=== PATIENT | female | born 1995 | race Caucasian/White ===

== ENCOUNTER 2017-06-15 23:24 | Emergency (ER) | payer OTHER ==
[~2017-06-15] VITALS: Ht 152.4 cm; Wt 57.9 kg
[2017-06-16 00:12] VITALS: BP 127/71; PULSE 125; RESP 18; O2SAT 100
--- NOTE | 2017-06-16 00:30 | ED.REPORT ---
HPI-General Illness Date of Service Jun 16, 2017 ED Provider: Jose Rafael Dickerson MD Pt is a 21 year old female with a hx of heroin abuse presenting to the ED for care. Associated symptoms include a fever. She is but she is not sure how far along, and she has not had any care or an ultrasound yet. She states that she last smoked heroin a day and a half ago. Pt reports that she cannot go into drug detox without having care. She has been once before but didn't find out until she was 7 months along. Denies any chills, SOB, wheezing, nausea, vomiting or diarrhea. Nursing Notes Stated Complaint: CARE Chief Complaint: Substance Abuse Nursing Notes Reviewed: Yes Allergies: Coded Allergies: acetaminophen (Verified Allergy, Unknown, 09/25/15) Scheduled Buprenorphine SL (Buprenorphine SL) 8 Mg Tab.subl 8 MG SL DAILY General Time Seen by MD: 00:27 Chief Complaint Other () Hx Obtained From: Patient Arrived By: Walk-in Sudden in Onset?: No Onset Occurred: Onset unknown Symptom Duration: Since onset Recent Healthcare: No recent doctor visit, No recent hospitalization Similar Sx Previous: No Past Medical History Past Medical History Seasonal allergies Corneal abrasion Past Surgical History I&D of abscess on buttock Reports: Tonsillectomy Family History Reviewed, not relevant Reports: Diabetes mellitus Reports: Cancer Smoking History Current Every Day Smoker Social History Pt lives with friends. Denies IV drug use, smokes heroin. Alcohol Use: "Social" Drug Use: THC, Other (Heroin) Occupation unemployed and not in school Ambulatory Status Independent Review of Systems Full Review of Systems Constitutional: Reports: Fever, Denies: Chills Respiratory: Denies: Shortness of breath, Wheezing GI: Denies: Diarrhea, Nausea, Vomiting Female: Reports: Complete sys rev & neg: except as marked. Physical Exam Vital Signs Vital Signs Date Time Temp Pulse Resp B/P Pulse Ox O2 Delivery O2 Flow Rate FiO2 06/16/17 03:57 37.0 122 19 93/78 98 Room Air 06/16/17 02:38 128 21 112/5 100 Room Air 06/16/17 00:12 36.8 125 18 127/71 100 Initial VS: Reviewed, Vital signs abnormal General/Constitutional: Well-developed, Well-nourished Head / Eyes: Atraumatic, Normocephalic, PERRL ENT: Mucous membranes moist, Conjunctiva normal, No scleral icterus Neck: Supple, Non-tender, Full range of motion Respiratory: Breath sounds normal, Clear to auscultation, No respiratory distress Extremities: Vascular intact, Neuro intact, No swelling, No tenderness Neurologic: Alert, Oriented, Nonfocal Psychiatric: Mood/affect normal, Behavior normal, Normal thought content Cardiovascular: Regular rhythm, Heart sounds NL Heart Rate / Rhythm: Positive: Tachycardia Abdomen: Atraumatic, Soft, Non-tender Uterus palpable 2-3 cm above umbilicus. movement is palpated. Skin: Warm Diaphoresis Interpretation & Diagnostics US : CONCLUSION: Single live intrauterine at approximately 27 weeks and 4 days. No specific abnormality. This report was transmitted to the emergency room at 06/16/2017 - 3:05:39 AM PDT. Lab Results Interpretation Result Diagram: 06/16/17 0126 06/16/17 0126 Test 06/16/17 01:26 06/16/17 01:30 White Blood Count 12.2th/mm3 (3.8-10.1) Red Blood Count 3.84mil/mm3 (3.90-5.20) Hemoglobin 10.3g/dL (12.0-15.6) Hematocrit 30.7% (35.0-46.0) Mean Corpuscular Volume 79.9fL (81-100) Mean Corpuscular Hemoglobin 26.8pg (27.0-35.0) Mean Corpuscular Hemoglobin Concent 33.6% (32.0-37.0) Red Cell Distribution Width 12.8% (12.3-15.4) Platelet Count 307bil/L (150-400) Neutrophils (%) (Auto) 82.3% (40-74) Lymphocytes (%) (Auto) 12.6% (14-46) Monocytes (%) (Auto) 4.2% (4-12) Eosinophils (%) (Auto) 0.2% (0-5) Basophils (%) (Auto) 0.2% (0-3) Erythrocyte Sedimentation Rate 34mm/hr (0-32) Sodium Level 137mEq/L (134-144) Potassium Level 3.7mEq/L (3.5-5.2) Chloride Level 103mEq/L (97-108) Carbon Dioxide Level 21mmol/L (18-29) Blood Urea Nitrogen 6mg/dL (6-20) Creatinine 0.32mg/dL (0.57-1.00) Estimat Glomerular Filtration Rate 373mL/min (>59) Glucose Level 105mg/dL (60-99) Lactic Acid Level 0.8mmol/L (0.4-2.0) Calcium Level 8.9mg/dL (8.5-10.1) Magnesium Level 1.8mg/dL (1.6-2.6) Total Bilirubin 0.2mg/dL (0.0-1.2) Aspartate Amino Transf (AST/SGOT) 19U/L (0-50) Alanine Aminotransferase (ALT/SGPT) 13U/L (0-32) Alkaline Phosphatase 84U/L (25-150) Total Protein 6.6g/dL (6.4-8.4) Albumin 3.4g/dL (3.4-5.0) Urine Color Straw (YELLOW) Urine Appearance Cloudy (CLEAR,HAZY) Urine pH 7.5 (5.0-8.0) Urine Specific [place] 1.010 (1.003-1.035) Urine Protein Negativemg/dL (NEG,TRACE) Urine Glucose (UA) Negativemg/dL (NEGATIVE) Urine Ketones Negativemg/dL (NEGATIVE) Urine Occult Blood Negative (NEGATIVE) Urine Nitrite Positive (NEGATIVE) Urine Bilirubin Negative (NEGATIVE) Urine Urobilinogen Normalmg/dL (NORMAL) Urine Leukocyte Esterase Moderate (NEGATIVE) Urine RBC 0-2/hpf (0-2) Urine WBC 6-10/hpf (0-5) Urine Epithelial Cells Many/hpf (NONE-MOD) Urine Crystals None seen (NONE SEEN) Urine Bacteria Many/hpf (NONE-FEW) Urine Hyaline Casts None/lpf (NONE) Urine Granular Casts None seen (NONE SEEN) Urine Waxy Casts None seen (NONE SEEN) Urine Red Blood Cell Casts None seen (NONE SEEN) Urine White Blood Cell Casts None seen (NONE SEEN) Urine Mucus None seen (None Seen) Urine Trichomonas None seen (NONE SEEN) Urine Yeast None (NONE SEEN) Urinalysis Comment None Urine Culture Reflexed Indicated Lab Results Interpretation: Elevated white blood count, normal lactic acid. Blood cultures pending. Re-Eval/Medical Decision Med Decision/Clinical Course 21-year-old female in advanced was received no care presents in full opiate withdrawal. She had been using smoked heroin but stopped cold turkey about 30 hours ago. She is very concerned about whether she will be arrested or not. She was give Subutex 4 mg with improvement followed by an additional 4 mg with complete resolution of her withdrawal symptoms. She was hydrated. Ultrasound was performed which showed 27.4 week with appropriate size. The baby was not tachycardic and showed no hyperactivity. She was given a prescription for Subutex and instructed on how to make an appointment at [facility]. She was referred to the Center for further monitoring and OB follow-up. Time of Eval: 00:39 Patient Status: Condition improved Re-Evaluation/Progress Note: Family in the room. Time of Eval: 01:13 Patient Status: Condition improved Re-Evaluation/Progress Note: Pt now complains of a headache. Time of Eval: 02:33 Patient Status: Condition improved Re-Evaluation/Progress Note: Discussed ultrasound results. Time of Eval: 03:37 Patient Status: Condition improved Re-Evaluation/Progress Note: Pt feels back to normal and is talking to a friend on the phone. Heart rate is down to 120. Risk, benefits and alternatives of suboxone during were discussed. Counseled Regarding: Diagnosis, Lab results, Need for follow-up, When/why to return to ED Discharge & Departure Primary Impression: Opioid dependence with withdrawal Additional Impressions: Heroin abuse complicating Trimester: second trimester Qualified Code: O99.322 - Drug use complicating , second trimester Weeks of gestation: 27 weeks Qualified Code: Z3A.27 - 27 weeks gestation of Disposition: Home Discharge Condition All VS Reviewed: Yes Condition: Improved Patient Instructions: Buprenorphine (Into the mouth) Additional Instructions: Your baby boy is about 27-1/2 weeks along!! Do not use any more heroin. Subutex (buprenorphine) 8 mg dissolved under the tongue daily, #6 prescription written. Contact [facility] priority access line at [phone] to schedule the next available appointment for outpatient Subutex management. You and the baby are far safer on Subutex during the . Call me on my personal cell phone at [phone] if you have any problems accessing care. Referrals: Vitor Curtis MD (PCP) Scribe Attestation Portions of this note were transcribed by Ivana Jimenez. I, Dr. Dickerson personally performed the history, physical exam and medical decision-making; I reviewed and confirmed the accuracy of the information in the transcribed note. Signed by: Ronda Wade, 06/16/2017. copies to: Vitor Curtis MD, Jose Rafael Hines MD Jun 16, 2017 00:30 IVANA JIMENEZ Jun 16, 2017 00:37
[2017-06-16] MEDS ORDERED: Buprenorphine 2 mg SL Tablet SL ONE ×2 (00:35→02:40)
[2017-06-16] MEDS ORDERED: 0.9% Sodium Chloride 1,000 ML IV ONE (00:52)
--- NOTE | 2017-06-16 01:06 | NUR ---
FHT's 1550-160's. No decels noted. Fundal height checked, around 19-20cm. VANGIE Greene notified.
[2017-06-16 01:29] LABS: BASOPHILS % (AUTO) 0.2 % (0-3); EOSINOPHILS % (AUTO) 0.2 % (0-5); MONOCYTES % (AUTO) 4.2 % (4-12); Mean Corpuscular Hemoglobin 26.8 pg (27.0-35.0); Mean Corpuscular Volume 79.9 fL (81-100); NEUTROPHILS % (AUTO) 82.3 % (40-74); Platelet Count 307 bil/L (150-400)
[2017-06-16 01:47] LABS: ERYTHROCYTE SEDIMENTATION RATE 34 mm/hr (0-32)
[2017-06-16 01:50] LABS: APPEARANCE,URINE CLOUDY (CLEAR,HAZY); COLOR,URINE STRAW (YELLOW)
[2017-06-16 01:51] LABS: OCCULT BLOOD,URINE NEGATIVE (NEGATIVE); PH,URINE 7.5 (5.0-8.0); UROBILINOGEN,URINE NORMAL (NORMAL)
[2017-06-16 02:00] LABS: Magnesium 1.8 mg/dL (1.6-2.6)
[2017-06-16 02:38] VITALS: BP 112/5; PULSE 128; RESP 21; O2SAT 100
[2017-06-16] MEDS ORDERED: BUPR8TAB2 SL (03:45)
[2017-06-16 03:57] VITALS: BP 93/78; PULSE 122; RESP 19; O2SAT 98
--- NOTE | 2017-06-16 14:45 | DRSVH ---
PROCEDURE: US OB>14 AND UMBILICAL DOPPLER INDICATIONS: heroin withdrawal, dates OUTSIDE/PRIOR DATING DATA: First dating scan (date and location): 06/16/17. Estimated date of delivery (RITA) from first dating scan: 09/11/17. TECHNIQUE: Real-time scanning was performed of the fetus, with image documentation and biometric measurements. COMPARISON: [facility], [place], OB FOLLOW UP GROWTH, 12/17/2015, 16:29. FINDINGS: General: A single living intrauterine gestation is present. Presentation: Vertex Placenta: Placental position is posterior, without previa. OB-FIELD SERVICE REPRESENTATIVE Ultrasound Procedure Report Summary Fetus Summary Composite Gestational Age by present scan: 27 weeks, 4 days Estimated Weight (EFW): 1078 g Heart Rate: 143 bpm Findings(Amniotic Sac) Amniotic Fluid Index (JOSEF): 12.30 cm Pelvis and Uterus Cervix Length: 3.4 cm Biometry BiometryGroup Biparietal Diameter (Mean): 6.88 cm Gestational Age (BPD): 27 weeks, 5 days Head Circumference (Mean): 25.61 cm Gestational Age (HC): 27 weeks, 6 days Abdominal Circumference (Mean): 23.16 cm Gestational Age (AC): 27 weeks, 4 days Femur Length (Mean): 5.08 cm Gestational Age (FL): 27 weeks, 2 days Measurement variability for biometric dating: +/- 7 days from 14 weeks to 15 weeks 6 days gestation, +/- 10 days from 16 weeks to 21 weeks 6 days gestation, +/- 2 weeks from 22 weeks to 27 weeks 6 days gestation, +/- 3 weeks for 28 weeks gestation or later. Anatomic survey: Neuro: Ventricles are non-dilated at less than 10 mm. Cisterna magna is normal at 3-11 mm. Cerebel lum is normal in size and morphology. Nuchal skin fold: Normal at less than 6 mm between 14-21 weeks gestational age. Face: Nose and lips, facial profile are normal. Spine: Not well-seen. Heart: Normal four-chamber heart and LVOT. RVOT not well-seen. Diaphragm: Diaphragm is intact. Stomach: Left-sided stomach is present. Kidneys: No hydronephrosis. Normal is less than 4 mm in 2nd trimester, less than 7 mm in 3rd trimester. Cord: 3-vessel cord has orthotopic insertion. Bladder: Normal in size. Extremities: All 4 extremities identified. IMPRESSION: 1. Single live intrauterine gestation present age estimated at 27 weeks 4 days 2. spine and right ventricular outflow tract not well seen otherwise normal anatomic survey. Dictated by: Zachary CARNES Interpreted: Su Valderrama MD on 06/16/2017 at 8:22 Approved by: Su Valderrama M.D. on 06/16/2017 at 14:43
[2017-06-18] MEDS ORDERED: AMOX-366 PO (11:47)
== END 2017-06-16 04:00 | disposition home or self-care (01) ==
LOC: SED 23:24
DX: O99.322 Drug use complicating pregnancy, second trimester (principal); O99.332 Smoking (tobacco) complicating pregnancy, second trimester; F11.23 Opioid dependence with withdrawal; F12.10 Cannabis abuse, uncomplicated; Z3A.27 27 weeks gestation of pregnancy; Z88.6 Allergy status to analgesic agent
CPT/HCPCS: 36415; 76805; 76820; 80053; 81000; 83605; 83735; 85025; 85651; 87086; 87088; 87186; 96360; 99285; J7030